=== PATIENT | female | born 2000 | race Caucasian/White ===

== ENCOUNTER 2019-04-21 11:01 | Emergency (ER) | payer OTHER ==
[~2019-04-21] VITALS: Ht 160 cm; Wt 63.5 kg
[2019-04-21 11:29] LABS: ABSOLUTE BASOPHILS 0.1 thou/uL (0.0-0.2); ABSOLUTE EOSINOPHILS 0.1 thou/uL (0.0-0.7); ABSOLUTE LYMPHOCYTES 1.8 thou/uL (0.8-5.3); ABSOLUTE MONOCYTES 0.6 thou/uL (0.0-1.2); ABSOLUTE NEUTROPHILS 4.7 thou/uL (1.6-8.1); BASOPHILS 0.8 %; EOSINOPHILS 1.3 %; HEMATOCRIT 43.4 % (37.0-47.0); HEMOGLOBIN 14.5 gm/dL (12.0-15.0); MCH 30.7 pg (26.0-34.0); MCHC 33.4 g/dL (28.0-37.0); MCV 91.9 fL (80.0-100.0); MONOCYTES 8.7 %; MPV 6.6 fl. (7.2-11.1); NUCLEATED RBCS 0 /100WBC; PLATELET COUNT* 479 thou/uL (150-400); POLYS 64.2 %; RBC 4.72 mil/uL (4.20-5.00); RDW-CV 13.6 % (10.5-14.5); WBC 7.2 thou/uL (4.0-11.0)
[2019-04-21 11:35] LABS: URINE BILIRUBIN NEGATIVE (Negative); URINE BLOOD NEGATIVE (Negative); URINE CLARITY CLEAR; URINE COLOR YELLOW; URINE GLUCOSE-RANDOM NEGATIVE (Negative); URINE KETONES NEGATIVE (Negative); URINE LEUKOCYTES-REFLEX NEGATIVE (Negative); URINE NITRITE-REFLEX NEGATIVE (Negative); URINE PROTEIN NEGATIVE (Negative); URINE SPECIFIC GRAVITY 1.025 (1.005-1.030); URINE UROBILINOGEN 0.2 E.U./dl (0.2-1.0)
[2019-04-21 11:37] LABS: CALCIUM 9.5 mg/dL (8.5-10.1); CREATININE 0.8 mg/dL (0.6-1.3); POTASSIUM 3.9 mmol/L (3.5-5.1)
[2019-04-21 11:42] LABS: TOTAL BILIRUBIN 0.1 mg/dL (<0.1-1.0); TOTAL PROTEIN 7.7 g/dL (6.4-8.2)
[2019-04-21 11:43] LABS: AMP/METHAMP Negative (Negative); BARBITURATES Negative (Negative); BENZODIAZEPINES Negative (Negative); COCAINE Negative (Negative); METHADONE Negative (Negative); OPIATES Negative (Negative); PCP Negative (Negative); THC POSITIVE (Negative)
[2019-04-21 11:46] LABS: ACETAMINOPHEN < 2 ug/mL (10-30); ALCOHOL < 10 mg/dL (<10); SALICYLATE 4.3 mg/dL (2.8-20.0)
[2019-04-21 19:30] VITALS: BP 91/62
== END 2019-04-21 19:30 | disposition still patient (30) ==
LOC: M.ERS 11:01
PROVIDERS: Emergency Medicine Emergency Medical Services
DX: R45.851 Suicidal ideations (principal); F17.210 Nicotine dependence, cigarettes, uncomplicated; F41.9 Anxiety disorder, unspecified

== ENCOUNTER 2019-10-23 17:15 | Emergency (ER) | payer OTHER ==
[~2019-10-23] VITALS: Ht 160 cm; Wt 61.2 kg
[2019-10-23] MEDS ORDERED: ZOLOFT25 MG PO (17:29)
[2019-10-23 17:44] LABS: ABSOLUTE LYMPHOCYTES 2.1 thou/uL (0.8-5.3); ABSOLUTE MONOCYTES 0.8 thou/uL (0.0-1.2); ABSOLUTE NEUTROPHILS 7.9 thou/uL (1.6-8.1); BASOPHILS 0.4 %; HEMATOCRIT 36.3 % (37.0-47.0); HEMOGLOBIN 12.6 gm/dL (12.0-15.0); LYMPHOCYTES 19.3 %; MCH 31.1 pg (26.0-34.0); MCHC 34.7 g/dL (28.0-37.0); MCV 89.6 fL (80.0-100.0); MONOCYTES 7.2 %; MPV 6.4 fl. (7.2-11.1); NUCLEATED RBCS 0 /100WBC; PLATELET COUNT* 578 thou/uL (150-400); POLYS 73.1 %; RBC 4.05 mil/uL (4.20-5.00); RDW-CV 13.2 % (10.5-14.5); WBC 10.9 thou/uL (4.0-11.0)
[2019-10-23 17:55] LABS: CALCIUM 9.7 mg/dL (8.5-10.1); CREATININE 0.7 mg/dL (0.6-1.3); POTASSIUM 3.4 mmol/L (3.5-5.1)
[2019-10-23 18:00] LABS: ALBUMIN 3.4 g/dL (3.4-5.0); TOTAL BILIRUBIN 0.3 mg/dL (<0.1-1.0); TOTAL PROTEIN 7.5 g/dL (6.4-8.2)
[2019-10-23 19:14] LABS: URINE BILIRUBIN NEGATIVE (Negative); URINE BLOOD NEGATIVE (Negative); URINE CLARITY SL CLOUDY; URINE COLOR YELLOW; URINE GLUCOSE-RANDOM NEGATIVE (Negative); URINE LEUKOCYTES-REFLEX NEGATIVE (Negative); URINE NITRITE-REFLEX NEGATIVE (Negative); URINE PROTEIN NEGATIVE (Negative); URINE UROBILINOGEN 0.2 E.U./dl (0.2-1.0)
[2019-10-23 19:15] LABS: URINE KETONES 3+ (Negative)
[2019-10-23] MEDS ORDERED: ONDANSETRON ODT4 MG PO (19:18)
[2019-10-23 19:22] LABS: BACTERIA-REFLEX >30 Many /HPF (None Seen); MUCUS >6 Heavy strn/LPF (None Seen); SQUAMOUS >10 Many /LPF (0-3); URINE RBC 0-2 Rare /HPF (0-2); URINE WBC-REFLEX 0-5 Rare /HPF (0-5)
[2019-10-23 19:23] LABS: CASTS None Seen /LPF (None Seen); CRYSTALS None Seen /LPF (None Seen); YEAST-REFLEX Present (None Seen)
[2019-10-23 19:30] LABS: AMP/METHAMP Negative (Negative); BARBITURATES Negative (Negative); BENZODIAZEPINES Negative (Negative); COCAINE Negative (Negative); METHADONE Negative (Negative); OPIATES Negative (Negative); PCP Negative (Negative); THC POSITIVE (Negative)
[2019-10-23 20:47] VITALS: BP 121/66
== END 2019-10-23 20:47 | disposition short-term general hospital (02) ==
LOC: M.ERS 17:15
PROVIDERS: Physician Assistant
DX: O21.8 Other vomiting complicating pregnancy (principal); O99.282 Endocrine, nutritional and metabolic diseases complicating pregnancy, second trimester; O98.812 Other maternal infectious and parasitic diseases complicating pregnancy, second trimester; B37.9 Candidiasis, unspecified; O26.892 Other specified pregnancy related conditions, second trimester; F12.90 Cannabis use, unspecified, uncomplicated; O99.342 Other mental disorders complicating pregnancy, second trimester; Z3A.15 15 weeks gestation of pregnancy; Z79.899 Other long term (current) drug therapy